=== PATIENT | male | born 1950 | race Caucasian/White ===

== ENCOUNTER 2017-06-06 08:55 | Day surgery (SDC) | payer MEDICARE ==
[~2017-06-06] VITALS: Ht 182.9 cm; Wt 94.9 kg
[~2017-06-06 08:55] MED LIST: ALLO100 PO; CHOL10002; CLON1 PO; FISH1000 PO; LEVCAR2510 PO; LEVSOD100 PO; Milk Thistle175 MG; Multiple Vitam1 EAC1 PO; SIMV40 PO
[2017-06-06] MEDS ORDERED: PRESERVISION A1 EACH PO (09:44)
== END 2017-06-06 12:41 | disposition home or self-care (01) ==
LOC: ORSCSDS 08:55
PROVIDERS: Orthopaedic Surgery
PROC: 01N40ZZ Release Ulnar Nerve, Open Approach (ICD-10-PCS; principal; 2017-06-06 10:30)
DX: G56.21 Lesion of ulnar nerve, right upper limb (principal); E03.9 Hypothyroidism, unspecified; Z87.891 Personal history of nicotine dependence; Z79.899 Other long term (current) drug therapy
CPT/HCPCS: J0690; J2250; J3010; J7120

== ENCOUNTER 2018-11-20 13:17 | Day surgery (SDC) | payer MEDICARE ==
[~2018-11-20] VITALS: Ht 182.9 cm; Wt 91.8 kg
[~2018-11-20 13:17] MED LIST changes: +CHOL10002 PO; +EUTHYROX100 MCG PO; +Fish Oil 10001000 MG PO; +Icaps Areds Fo1 EACH PO; +PRESERVISION A1 EACH PO; +SINEMET 25-1001 EACH PO; +Simvastatin40 MG PO
== END 2018-11-20 16:16 | disposition home or self-care (01) ==
LOC: ORSCSDS 13:17
PROVIDERS: Surgery
PROC: 0DBL8ZX Excision of Transverse Colon, Via Natural or Artificial Opening Endoscopic, Diagnostic (ICD-10-PCS; principal; 2018-11-20 14:45)
DX: Z12.11 Encounter for screening for malignant neoplasm of colon (principal); Z86.010 Personal history of colon polyps; D12.3 Benign neoplasm of transverse colon; E03.9 Hypothyroidism, unspecified; E78.5 Hyperlipidemia, unspecified; Z87.891 Personal history of nicotine dependence; Z79.899 Other long term (current) drug therapy
CPT/HCPCS: 88305; J2704; J7120

== ENCOUNTER 2019-12-18 06:49 | Day surgery (SDC) | payer MEDICARE, OTHER ==
[~2019-12-18] VITALS: Ht 182.9 cm; Wt 94.2 kg
[~2019-12-18 06:49] MED LIST changes: +ICAPS PO
--- NOTE | 2019-12-18 07:51 | NUR ---
History, Chart, Medications and Allergies reviewed before start of procedure. Lungs clear T/O to Auscultation. Patient confirms NPO status and agrees with scheduled surgery. Pre-Op teaching done. Pt verbalizes understanding. Patient reports completing Chlorhexadine shower X2 prior to admission to hospital.
--- NOTE | 2019-12-18 10:28 | NUR ---
12/18/19 1028 Colleen Vickers ALL COUNTS CORRECT.
--- NOTE | 2019-12-18 12:14 | NUR ---
Patient up to Ambulate independently. Gait steady. Discharge instructions reviewed with patient. Patient verbalizes understanding. Copy given to patient to take home. Discharged via wheelchair to private car for ride home.
== END 2019-12-18 22:42 | disposition home or self-care (01) ==
LOC: ORSCMMR 06:49 → ORD 08:30 → ORSCMMR 22:42
PROVIDERS: Surgery
PROC: 0YU50JZ Supplement Right Inguinal Region with Synthetic Substitute, Open Approach (ICD-10-PCS; principal; 2019-12-18 08:30)
DX: K40.90 Unilateral inguinal hernia, without obstruction or gangrene, not specified as recurrent (principal); I10 Essential (primary) hypertension; E03.9 Hypothyroidism, unspecified; G20 Parkinson's disease; Z79.899 Other long term (current) drug therapy
CPT/HCPCS: A9270-GY; C1781; J0360; J0690; J1100; J1885; J2405; J2704; J3010; J7120

== ENCOUNTER 2024-10-15 13:24 | Day surgery (SDC) | payer OTHER ==
[~2024-10-15] VITALS: Ht 182.9 cm; Wt 90.0 kg
[~2024-10-15 13:24] MED LIST changes: +Glycopyrrolate 0.2 MG/ML 1MLVIAL ONE; +Ondansetron HCl 2 MG / ML 2ML Vial ONE; +ePHEDrine Sulfate 50 MG/ML 1ML Injection ONE
[2024-10-15] MEDS ORDERED: ASPI81CH PO (14:03)
[2024-10-15 16:02] VITALS: BP 108/57
== END 2024-10-15 15:55 | disposition home or self-care (01) ==
LOC: ORSCSDS 13:24
PROVIDERS: Surgery
PROC: 0DJD8ZZ Inspection of Lower Intestinal Tract, Via Natural or Artificial Opening Endoscopic (ICD-10-PCS; principal; 2024-10-15 15:00)
DX: Z12.11 Encounter for screening for malignant neoplasm of colon (principal); Z86.0101 Personal history of adenomatous and serrated colon polyps; Z87.891 Personal history of nicotine dependence; F41.9 Anxiety disorder, unspecified; G20.A1 Parkinson's disease without dyskinesia, without mention of fluctuations; E03.9 Hypothyroidism, unspecified; Z79.899 Other long term (current) drug therapy; Z79.82 Long term (current) use of aspirin
CPT/HCPCS: J0461; J2003; J2405; J2704; J7120; Q9968